=== PATIENT | male | born 1985 | race African-American/Black ===

== ENCOUNTER 2017-03-04 00:07 | Emergency (ER) | payer MEDICAID ==
[2017-03-04 01:25] VITALS: BP 130/94
== END 2017-03-04 01:25 | disposition home or self-care (01) ==
LOC: ED 00:07
DX: K64.0 First degree hemorrhoids (principal); K64.1 Second degree hemorrhoids; K59.00 Constipation, unspecified; Z88.0 Allergy status to penicillin

== ENCOUNTER 2018-05-01 09:14 | Emergency (ER) | payer MEDICAID ==
[~2018-05-01] VITALS: Ht 205.7 cm; Wt 95.3 kg
[2018-05-01 09:25] VITALS: BP 139/83; Ht 205.7 cm; Wt 95.3 kg
== END 2018-05-01 10:31 | disposition home or self-care (01) ==
LOC: ED 09:14
DX: J11.1 Influenza due to unidentified influenza virus with other respiratory manifestations (principal); Z88.0 Allergy status to penicillin
CPT/HCPCS: Q0092

== ENCOUNTER 2018-05-07 22:03 | Emergency (ER) | payer MEDICAID ==
[~2018-05-07] VITALS: Ht 205.7 cm; Wt 91.6 kg
[2018-05-07 22:17] VITALS: BP 143/72; Ht 205.7 cm; Wt 91.6 kg
== END 2018-05-08 03:50 | disposition home or self-care (01) ==
LOC: ED 22:03
DX: S13.4XXA Sprain of ligaments of cervical spine, initial encounter (principal); S43.402A Unspecified sprain of left shoulder joint, initial encounter; Z88.0 Allergy status to penicillin; V43.52XA Car driver injured in collision with other type car in traffic accident, initial encounter; Y93.I9 Activity, other involving external motion; Y92.413 State road as the place of occurrence of the external cause; Y99.8 Other external cause status
CPT/HCPCS: J1885

== ENCOUNTER 2019-04-10 21:03 | Emergency (ER) | payer MEDICAID ==
[~2019-04-10] VITALS: Ht 205.7 cm; Wt 93.9 kg
[2019-04-10 21:11] VITALS: Ht 205.7 cm; Wt 93.9 kg
[2019-04-10 23:52] VITALS: BP 150/87
== END 2019-04-10 23:52 | disposition home or self-care (01) ==
LOC: ED 21:03
DX: J11.1 Influenza due to unidentified influenza virus with other respiratory manifestations (principal); B35.4 Tinea corporis; M54.9 Dorsalgia, unspecified; Z88.0 Allergy status to penicillin
CPT/HCPCS: 87804; Q0092

== ENCOUNTER 2020-01-11 17:13 | Emergency (ER) | payer MEDICAID ==
[~2020-01-11] VITALS: Ht 205.7 cm; Wt 86.2 kg
[2020-01-11 17:23] VITALS: Ht 205.7 cm; Wt 86.2 kg
[2020-01-11 18:53] VITALS: BP 146/96
== END 2020-01-11 18:50 | disposition home or self-care (01) ==
LOC: ED 17:13
DX: K64.4 Residual hemorrhoidal skin tags (principal); K59.00 Constipation, unspecified; Z88.0 Allergy status to penicillin